=== PATIENT | female | born 1970 | race African-American/Black ===

== ENCOUNTER 2023-12-02 07:42 | Emergency (ER) | payer MEDICAID ==
[~2023-12-02] VITALS: Ht 167.6 cm; Wt 59.0 kg
[2023-12-02 07:47] VITALS: O2SAT 98
[2023-12-02] MEDS: LEVETIRACETAM 1000MG PREMIX 100 ML IV ONE (08:40)
[2023-12-02 08:50] LABS: BASOPHILS % 0.7 % (0.0-2.0); DIFFERENTIAL COMMENT 0; EOSINOPHILS % 2.1 % (0.0-5.0); HEMATOCRIT. 44.7 % (36.0-48.0); HEMOGLOBIN. 14.8 g/dL (12.0-16.0); LYMPHOCYTES % 35.1 % (20.0-50.0); MEAN CORPUSCULAR HEMOGLOBIN 32.3 pg (28.0-32.0); MEAN CORPUSCULAR HGB CONC 33.1 g/dL (31.0-37.0); MEAN CORPUSCULAR VOLUME 97.7 fL (81.0-99.0); MEAN PLATELET VOLUME 8.4 fl (7.4-10.4); MONOCYTES % 5.6 % (2.0-8.0); NEUTROPHILS % 56.5 % (40.0-76.0); PLATELET 260 x1000/uL (130-400); RED BLOOD CELL COUNT 4.57 mill/uL (4.2-5.4); RED CELL DISTRIBUTION WIDTH 14.1 % (11.6-14.6); WHITE BLOOD COUNT 6.7 x1000/uL (4.5-11.0)
[2023-12-02 09:02] LABS: CHLORIDE 112 mEq/L (98-107); POTASSIUM 4.1 mEq/L (3.5-5.1); SODIUM 144 mEq/L (136-145)
[2023-12-02 09:03] LABS: CALCIUM 9.3 mg/dL (8.7-10.4); CARBON DIOXIDE 27 mEq/L (21-32)
[2023-12-02 09:08] LABS: CREATININE 0.7 mg/dL (0.6-1.0); GLUCOSE 89 mg/dL (70-105); UREA NITROGEN BLOOD 6 mg/dL (9-23)
[2023-12-02 09:12] LABS: ETHANOL BLOOD < 10 mg/dL (<10)
[2023-12-02 09:50] LABS: CLARITY URINE CLEAR (CLEAR); COLOR URINE YELLOW (YELLOW); GLUCOSE URINE NEGATIVE (NEGATIVE); KETONES URINE NEGATIVE (NEGATIVE); LEUKOCYTE ESTERASE URINE TRACE (NEGATIVE); NITRITE URINE NEGATIVE (NEGATIVE); OCCULT BLOOD URINE TRACE (NEGATIVE); PROTEIN URINE 1+ (NEGATIVE); SPECIFIC GRAVITY URINE 1.014 (1.005-1.030); UROBILINOGEN URINE 0.2 E.U./dL (0.2-1.0)
[2023-12-02 10:06] LABS: MUCUS URINE 2+ /lpf (< = 2+); SQUAMOUS EPITHELIAL CELL URINE 1+ /lpf (RARE/1+)
[2023-12-02 10:11] LABS: *AMPHETAMINES SCREEN URINE NEGATIVE (NEGATIVE); *BARBITURATES SCREEN URINE NEGATIVE (NEGATIVE); *BENZODIAZEPINES SCREEN URINE NEGATIVE (NEGATIVE); BACTERIA URINE TRACE; TRICHOMONAS URINE FEW
[2023-12-02 10:12] LABS: *COCAINE SCREEN URINE PRESUMPTIVE POSITIVE (NEGATIVE); CANNABINOID URINE SCREEN PRESUMPTIVE POSITIVE (NEGATIVE); ECSTASY MDMA SCREEN URINE NEGATIVE (NEGATIVE); METHADONE URINE SCREEN NEGATIVE (NEGATIVE); OPIATES URINE SCREEN NEGATIVE (NEGATIVE); PHENCYCLIDINE URINE SCREEN NEGATIVE (NEGATIVE)
[2023-12-02] MEDS ORDERED: KEPP500 MT (10:32)
[2023-12-02] MEDS ORDERED: LISINOPRIL 20MG TABLET PO ONE (10:45)
[2023-12-02] MEDS: ONDANSETRON HCL 4MG/2ML INJ IV ONE (10:55)
[2023-12-02] MEDS: ACETAMINOPHEN 500MG TABLET PO ONE (10:56)
[2023-12-02] MEDS: LISINOPRIL 10MG TABLET PO NR (10:56)
[2023-12-02 11:50] VITALS: BP 187/118; PULSE 72; RESP 15; TEMP 98.1
== END 2023-12-02 12:00 | disposition home or self-care (01) ==
LOC: ER 07:42
DX: R56.9 Unspecified convulsions (principal); I10 Essential (primary) hypertension; Z91.148 Patient's other noncompliance with medication regimen for other reason
CPT/HCPCS: 80305; 80048; 81003; 80320; 85025; 36415; 96365; 96375; 99285; J1953; J2405; Z7610; G0480